=== PATIENT | female | born 1965 | race Two or more races ===

== ENCOUNTER 2024-10-02 12:17 | Emergency (ER) | payer OTHER ==
[~2024-10-02] VITALS: Ht 162.6 cm; Wt 90.7 kg
[2024-10-02] MEDS ORDERED: LevETIRAcetam 500 MG/5 ML VIAL IV SCH (13:25)
[2024-10-02] MEDS ORDERED: 0.9 % SODIUM CHLORIDE 1,000 ML IV ONE (13:30)
[2024-10-02] MEDS ORDERED: FAMOtidine 10 MG/ML (4ML VIAL) IV ONE (13:30)
[2024-10-02] MEDS ORDERED: LevETIRAcetam 500 MG/5 ML VIAL IV ONE (13:49)
[2024-10-02] MEDS ORDERED: FAMOTIDINE/PF 20 MG/2 ML VIAL ONE (13:50)
[2024-10-02 15:37] LABS: PH,URINE 6.5 (5.0-8.0); URINE APPEARANCE Clear; URINE BILIRRUBIN Negative (NEGATIVE); URINE BLOOD Negative; URINE COLOR Yellow; URINE GLUCOSE Negative (NEGATIVE); URINE KETONE Negative (NEGATIVE); URINE LEUKOCYTE Trace; URINE NITRATE Negative; URINE PROTEIN Negative (NEGATIVE); URINE UROBILINOGEN 0.2 E.U./dl
[2024-10-02 15:38] LABS: HEMATOCRIT 35.5 % (36.0-45.00); HEMOGLOBIN 11.8 g/dL (12.0-15.00); MEAN CELL VOLUME 90.8 fL (80.00-100.00); MEAN CORPUSCULAR HEMOGLOBIN 30.3 pg (27.00-32.0); MEAN CORPUSCULAR HGB CONC 33.4 g/dl (32.0-36.0); PLATELET COUNT 243 K/uL (150-450); RED BLOOD COUNT 3.91 M/uL (4.00-6.00); RED CELL DISTRIBUTION WIDTH 14.5 % (11.5-14.5)
[2024-10-02 15:42] LABS: URINE BACTERIA 72.1 uL (0.0-1933); URINE EPITHELIAL CELLS 9.9 uL (0.0-38.8); URINE RBC 4.2 uL (0.0-20.8); URINE WBC 12.3 uL (0.0-23.2)
[2024-10-02 15:57] LABS: URINE CAST 0.29 uL (0.0-1.40)
[2024-10-02 16:26] LABS: ALBUMIN 3.6 gm/dL (3.4-5.0); BILIRUBIN TOTAL 0.65 mg/dL (0.3-1.2); CALCIUM 9.2 mg/dL (8.5-10.1); CREATININE SERUM 0.86 mg/dL (0.55-1.02); GFR 67.54; GLOBULINA 3.5 G/DL (2.4-3.5); POTASSIUM 4.73 mEq/L (3.5-5.1); TOTAL PROTEIN 7.1 gm/dL (6.4-8.2)
[2024-10-02] MEDS ORDERED: BACTRIM DS TAB1 EACH PO (16:49)
[2024-10-02] MEDS ORDERED: KEPPRA500 MG PO (16:49)
[2024-10-02] MEDS ORDERED: PEPCID AC20 MG PO (16:49)
== END 2024-10-02 16:58 | disposition home or self-care (01) ==
LOC: ER 12:17
PROVIDERS: General Practice
DX: G40.89 Other seizures (principal); Z20.822 Contact with and (suspected) exposure to COVID-19; Z88.8 Allergy status to other drugs, medicaments and biological substances